=== PATIENT | male | born 1955 | race Two or more races ===

== ENCOUNTER 2025-05-30 11:10 | Outpatient (AMB) | payer OTHER, SELFPAY ==
--- NOTE | 2025-05-30 12:07 | A.OFFVIS_ITS ---
Intake Visit Reasons: Hx Patient Monitor Intake Note: patient presents today for: new pt NEUROPSYCHIATRIST urology medications: none blood thinners: none Amusement Equipment Operator Required: Yes Amusement Equipment Operator Services: Amusement Equipment Operator Present Accompanied by: Daughter Allergies No Known Allergies (No Known Allergies*) Allergy (Unverified 05/30/25 12:08) HPI Comments Details: Pietro is a pleasant Sami-speaking male. Recent move from [place]. He is seen for the following urologic conditions - prostate cancer - erectile dysfunction - bulbourethral stricture Rising PSA after treatment for prostate cancer 02/05 1.5 Has seen medical oncology at [facility] Planned PET-CT May be eligible for targeted radiation therapy Given prior recurrence would proceed with GNRH blockade at time of radiation Prostate cancer Diagnosed and treated in [place] Initial diagnosis 2007. Underwent prostatectomy with salvage radiation and Lupron Initial prostatectomy showed pT2c N0 disease. Capsular invasion but no periprosthetic tissue found. Salvage external beam radiation 2009 for rising PSA Imaging - PET 03/08 - postprostatectomy with no residual PSMA positive process within prostatic bed. Two PSMA positive nodes shown. Right common iliac vessel and obturator level. Measures 1.0 cm. PSMA positive skeletal lesion sacrum Persistent PSA following radiation - underwent multiple GnRH administration through 2022 Bulbar urethral stricture 2017 underwent DVIU for stricture following radiation Dilated to 30 Peruvian with 22 Peruvian Pope Required AUS placement Erectile dysfunction Underwent penile prosthetic with revision Review of Systems Const Denies chills and Denies fever(s) Card Reports no additional complaints and Denies syncope Resp Denies cough GI Denies abdominal pain and Denies heartburn Reports as per HPI and Denies change in libido Neuro Denies syncope Psych Denies change in libido Endo Denies change in libido Physical Exam Const General: cooperative, healthy appearing, comfortable and no acute distress Orientation/consciousness: patient oriented x3 HEENT Face and sinus: Yes normal facial exam Mouth: moist mucous membranes Neck Neck: Yes normal visual inspection, Yes full ROM and Yes trachea midline Chest Chest palpation & inspection: normal inspection of the chest Resp Effort & Inspection: normal respiratory effort, able to speak in complete sentences and no respiratory distress GI Inspection: Yes normal to inspection Back/Spine/Pelvis Cervical Spine: normal cervical lordosis Thoracic/Lumbar Spine: thoracic and lumbar spine normal to inspection Skin General skin exam: no rashes or lesions noted Neuro General: patient oriented x3, gait normal, tone normal and moves all extremities Extrem General: Yes normal to inspection and Yes capillary refill normal Assessment & Plan Assessment & Plan (1) Prostate cancer metastatic to intrapelvic lymph node: Code(s): C61 - Malignant neoplasm of prostate; C77.5 - Secondary and unspecified malign ant neoplasm of intrapelvic lymph nodes Category: Medical Plan Restaging for evaluation of targeted external beam radiation Patient Instructions: This note is constructed using voice recognition software. While every effort has been made to ensure accuracy patient information coordinator errors may have been included. Imaging studies, laboratory and physical exam results were discussed and reviewed in detail. No major barriers to patient understanding were identified. An opportunity to ask questions regarding the treatment plan was provided. All questions were answered. The patient expressed understanding and agreement with the above treatment plan. The patient is aware they should contact our office by phone for worsening of their current condition or the appearance of new urologic symptoms. Compliance is encouraged with any medications and followup testing that is ordered. It is a privilege to participate in the urologic care of your patient. If you have any questions or concerns regarding treatment for the above conditions, or other urologic issues, please do not hesitate to contact me. The office telephone contact is [phone]. Sincerely, Dr Paul Moncada MD, [facility] - Urology Compassionate Specialist Care for the Genitourinary System Coding Level of Care Code New Pt Level 4 (45271) Diagnoses Prostate cancer metastatic to intrapelvic lymph node C61; C77.5
--- OUTSIDE RECORDS SUMMARY | 2025-05-30 15:17 | XMS_ITS | Clinical Summary ---
Author Organization [facility] Address [address] [place] [address] Care Team Providers Care Patient Financial Coordinator Name Role Phone Ama Murcia Primary Care Provider + [phone] Source Comments PLEASE NOTE, if this patient is a minor, it may be UNLAWFUL to discuss sensitive information that is contained in these records (such as FAMILY PLANNING, MENTAL HEALTH or SUBSTANCE ABUSE) with the minor patient's parent or other person without the patient's specific authorization.[facility] Allergies No known active allergies Medications diclofenac sodium (VOLTAREN) 1 % gelIndications:Ch ronic bilateral low back pain with left-sided sciatica Apply 2 g topically 2 (two) times daily. 150 g 2 5 Active acetaminophen (TYLENOL) 325 mg tabletIndications :Chronic bilateral low back pain with left-sided sciatica Take 2 Tablets by mouth every 8 (eight) hours. 90 Tablet 2 5 Active losartan (COZAAR) 25 mg tabletIndications :Primary hypertension Take 1 Tablet by mouth once daily. 90 Tablet 5 Active cyclobenzaprine (FLEXERIL) 5 mg tabletIndications :Oligometastatic cancer (CMS & HHS-HCC),Chronic bilateral low back pain with left-sided sciatica Take 1 Tablet by mouth nightly at bedtime as needed for muscle spasms Watch for drowsiness. Avoid use with alcohol or other sedating medication.. 30 Tablet 2 5 Active Active Problems No known active problems Encounters Date Type Department Care Team Description 05/12/2025 Interim Notes [facility] [address] [address] Ama Murcia FNP 04/19/2025 5:20 PM EDT Telemedicine Visit [address] [phone] Kristen Granda FNP-C 04/09/2025 Results Follow-Up [address] [address] Ama Murcia FNP 03/30/2025 9:20 AM EDT Office Visit [address] [address] Ama Murcia FNP 03/10/2025 9:40 AM EDT Office Visit [address] [address] Rogelio Dykes PA-C from Last 3 Months Immunizations Immunization Administration Dates Next Due TDAP 03/30/2025 ZOSTER VACCINE, RECOMBINANT (SHINGRIX) Family History Medical History Relation Name Comments No Known Problems Brother x3 No Known Problems Daughter x1 No Known Problems Father Cancer Mother leukemia Mother No Known Problems Sister x3 Relation Name Status Comments Brother x3 Alive Daughter x1 Alive Father Mother Sister x3 Alive Social History Tobacco Use Types Packs/Day Years Used Date Smoking Tobacco: Never Smokeless Tobacco: Never Tobacco Cessation:Counseling Given: Not Answered Alcohol Use Standard Drinks/Week Comments Never 0 (1 standard drink = 0.6 oz pur e alcohol) Sex and Gender Information Value Date Recorded Sex Assigned at Male 03/10/2025 6:02 AM PDT Legal Sex Male 5:29 AM PDT Gender Identity Male 03/10/2025 6:02 AM PDT Sexual Orientation Straight 03/10/2025 6: 02 AM PDT Last Filed Vital Signs Vital Sign Reading Time Taken Comments Blood Pressure 120/80 03/30/2025 9:33 AM EDT Pulse 66 03/30/2025 9:33 AM EDT Temperature 36.7 C (98.1 F) 03/30/2025 9:33 AM EDT Respiratory Rate 16 03/30/2025 9:33 AM EDT Oxygen Saturation 98% 03/30/2025 9:33 AM EDT Inhaled Oxygen Concentration - - Weight 108 kg (238 lb) 03/30/2025 9:33 AM EDT Height 182.9 cm (6') 03/30/2025 9:33 AM EDT Body Mass Index 32.28 03/30/2025 9:33 AM EDT Plan of Treatment Upcoming Encounters Date Type Department Care Team (Late st Contact Info) Description 07/26/2025 10:00 AM EST Office Visit [facility] [address] [place] [id number] Venu Keesha [address] [place] [address] Health Maintenance Due Date Last Done Comments CT Colonography 2001 Colonoscopy 2001 Colorectal Cancer Screening 2001 FIT/gFOBT 2001 Fecal DNA 2001 Flexible Sigmoidoscopy 2001 [id number] ( season) 2025 Imm-Influenza (#1) 2025 Imm-Zoster, Recombinant (2 o f 2) 05/25/2025 03/30/2025 Imm-Pneumococcal 50+ (1 of 1 - PCV) 07/01/2025 Postponed from 12/05 (Patient postponement) Falls Prevention 03/30/2026 03/30/2025 Medicare Annual Wellness Visit 03/30/2026 03/30/2025 Tobacco Screening 05/12/2026 05/12/2025 Diabetes Screening 03/30/2028 03/30/2025, 03/10/2025 Lipid Screening 03/30/2028 03/30/2025 Imm-DTaP/Tdap/Td (2 - Td or Tdap) 03/30/2035 03/30/2025 Alcohol and Drug Screen Completed 03/30/2025 Depression Annual Screen Completed 03/30/2025 Hepatitis C Screening Completed 03/30/2025 Procedures Procedure Name Priority Date/Time Associated Diagnosis Comments REFERRAL TO ONCOLOGY Urgent 05/23/2025 3:00 AM EDT Oligometastatic cancer ([facility] & HHS-HCC) REFERRAL TO OPHTHALMOLOGY Routine 05/18/2025 3:00 AM EDT Routine general medical examination at a health care facility REFERRAL SCANNED DOCUMENT 04/21/2025 3:00 AM EDT US - PELVIC MALE (NON OBSTETRIC) COMPLETE Urgent 04/07/2025 3:00 AM EDT Right lower quadrant pain RFLX - REFLEXIVE URINE CULTURE Routine 03/30/2025 10:25 AM EDT Routine general medical examination at a [facility] facility URINALYSIS, COMPLETE W/REFLEX TO CULTURE Routine 03/30/2025 10:25 AM EDT Routine general medical examination at a [facility] care facility HEPATITIS C AB W/RFLX HCV RNA, QT, RT PCR Routine 03/30/2025 10:25 AM EDT Routine general medical examination at a [facility] facility TSH W/RFLX FREE T4 Routine 03/30/2025 10 :25 AM EDT Routine general medical examination at a [facility] facility HEMOGLOBIN GLYCOSYLATED A1C Routine 03/30/2025 10:25 AM EDT Routine general medical examination at a [facility] care facility LIPID PANEL Routine 03/30/2025 10:25 AM EDT Routine general medical examination at a [facility] care facility PROSTATE SPECIFIC ANTIGEN, FREE AND TOTAL Routine 03/10/2025 9:35 AM EDT Oligometastatic cancer ([facility] & HHS-HCC) BLOOD COUNT COMPLETE AUTOMATED Routine 03/10/2025 9:35 AM EDT Oligometastatic cancer ([facility]) COMPREHENSIVE METABOLIC PANEL Routine 03/10/2025 9:35 AM EDT Oligometastatic cancer ([facility]) LAB SCANNED DOCUMENT 03/10/2025 3:00 AM EDT IMAGING SCANNED DOCUMENT 02/28/2025 3:00 AM EDT REFERRAL FOR PET SCAN Routine 02/28/2025 3:00 AM EDT Oligometastatic cancer ([facility]) from Last 3 Months Results * REFERRAL TO ONCOLOGY (05/23/2025 3:00 AM EDT) 05/23/2025 3:00 AM EDT Rogelio Donis PA-C REFERRAL Final Result * REFERRAL TO OPTHALMOLOGY (05/18/2025 3:00 AM EDT) 05/18/2025 3:00 AM EDT Ama Murcia [facility] REFERRAL Final Result * REFERRAL SCANNED DOCUMENT (04/21/2025 3:00 AM EDT) 04/21/2025 3:00 AM EDT [facility] Provider Default SCAN REFERRAL Final Resu lt * US - PELVIC MALE (NON OBSTETRIC) COMPLETE (04/07/2025 3:00 AM EDT) 04/07/2025 3:00 AM EDT Ama AlTwin [facility] IMG ULTRASOUND Final Result * HEPATITIS C AB W/RFLX HCV RNA, QT, RT PCR Routine (03/30/2025 10:25 AM EDT) HEPATITIS C ANTIBODY NON-REACT HANSEL NON-REACT HANESL [facility] Comment: HCV antibody was non-reactive. There is no laboratory evidence of HCV infection. In most cases, no further action is required. However, if recent HCV exposure is suspected, a test for HCV RNA (test code 56492) is suggested. For additional information please refer to http://education.[employer]/faq/UUN89w6 (This link is being provided for informational/ educational purposes only.) Blood Blood / Unknown 03/30/2025 1 0:25 AM EDT 03/30/2025 10:26 AM EDT Narrative [facility] - 03/31/2025 5:00 PM EDT FASTING:NO Amapadilla Murcia [facility] LAB - BLOOD DRAW Final Resul t Performing Organization Address City/[facility]/ZIP Co de Phone Number [facility] [address] [address], [facility] [address] [address] * TSH W/RFLX FREE T4 Routine (03/30/2025 10:25 AM EDT) TSH W/REFLEX TO FT4 1.15 0.40 - 4.50 mIU/L [facility] Blood Blood / Unknown 03/30/2025 1 0:25 AM EDT 03/30/2025 10:26 AM EDT Narrative [facility] - 03/31/2025 5:00 PM EDT FASTING:NO Ama Murcia [facility] - BLOOD DRAW Edited Resu lt - Final Performing Organization Address City/[facility]/ZIP Co de Phone Number [facility] [address] [address], [facility] [address] [address] * URINALYSIS, COMPLETE W/REFLEX TO CULTURE Urine Routine (03/30/2025 10:25 AM EDT) COLOR YELLOW YELLOW [facility] APPEARANCE CLEAR CLEAR [facility] SPECIFIC GRAVITY 1.019 1.001 - 1.035 [facility] URINE PH 7.0 5.0 - 8.0 [facility] GLUCOSE NEGATIVE NEGATIVE [facility] BILIRUBIN NEGATIVE NEGATIVE [facility] KETONES NEGATIVE NEGATIVE [facility] OCCULT BLOOD NEGATIVE NEGATIVE [facility] URINE PROTEIN NEGATIVE NEGATIVE [facility] NITRITE NEGATIVE NEGATIVE [facility] LEUKOCYTE ESTERASE NEGATIVE NEGATIVE [facility] URINE LEUKOCYTES NONE SEEN < OR = 5 [facility] RBC NONE SEEN < OR = 2 [facility] SQUAMOUS EPITHELIAL CELLS 0-5 < OR = 5 /HPF [facility] BACTERIA NONE SEEN NONE SEEN [facility] HYALINE CAST NONE SEEN NONE SEEN [facility] SEE NOTE See Below [facility] Comment: This urine was analyzed for the presence of WBC, RBC, bacteria, casts, and other formed elements. Only those elements seen were reported. Urine Urine specimen / Unknown 03/30/2025 10:25 AM EDT 03/30/2025 10:26 AM EDT Narrative [employer] [facility] - 03/31/2025 5:00 PM EDT FASTING:NO Ama AlTwin [facility] URINE AMBULATORY Edited Result - Final Performing Organization Address [facility] Co de Phone Number [facility] [address] [address], [facility] [address] [address] * RFLX - REFLEXIVE URINE CULTURE Routine (03/30/2025 10:25 AM EDT) REFLEXIVE URINE CULTURE See Below [facility] Comment:NO CULTURE INDICATED 03/30/2025 10:2 5 AM EDT 03/30/2025 10:26 AM EDT Narrative [employer] [facility] - 03/31/2025 5:00 PM EDT FASTING:NO Ama Diarian [facility] - MICROBIOLOGY AMBULATOR Y Edited Result - Final Performing Organization Address [facility] de Phone Number [facility] [address] [address], [facility] [address] [address] * HEMOGLOBIN GLYCOSYLATED A1C Routine (03/30/2025 10:25 AM EDT) HEMOGLOBIN A1C 5.1 <5.7 % [employer] [facility] Comment: For the purpose of screening for the presence of diabetes: <5.7% Consistent with the absence of diabetes 5.7-6.4% Consistent with increased risk for diabetes (prediabetes) > or =6.5% Consistent with diabetes This assay result is consistent with a decreased risk of diabetes. Currently, no consensus exists regarding use of hemoglobin A1c for diagnosis of diabetes in children. According to [place] Diabetes Association (ADA) guidelines, hemoglobin A1c <7.0% represents optimal control in non- diabetic patients. Different metrics may apply to specific patient populations. Standards of Medical Care in Diabetes(ADA). Blood Blood / Unknown 03/30/2025 1 0:25 AM EDT 03/30/2025 10:26 AM EDT Narrative [facility] - 03/31/2025 5:00 PM EDT FASTING:NO Ama Twin [facility] - BLOOD DRAW Edited Resu lt - Final [facility] [address] [place] [phone], [facility] [address] [place] [phone] * (ABNORMAL) LIPID PANEL Routine (03/30/2025 10:25 AM EDT) CHOLESTEROL, TOTAL 133 <200 mg/dL [facility] HDL CHOLESTEROL 35(L) > OR = 40 mg/dL [facility] TRIGLYCERIDES 187(H) <150 mg/dL [facility] LDL-CHOLESTEROL 72 99 mg/dL (calc) [facility] Comment: Reference range: <100 Desirable range <100 mg/dL for primary prevention; <70 mg/dL for patients with CHD or diabetic patients with > or = 2 CHD risk factors. LDL-C is now calculated using the Palmer-Sahu calculation, which is a validated novel method providing better accuracy than the Friedewald equation in the estimation of LDL-C. Palmer SS et al. EVERARDO. 2013;310(19): 2948-5537 (http://education.[employer]/faq/KBE327) CHOL/HDLC RATIO 3.8 <5.0 (calc) [facility] NON-HDL CHOLESTEROL 98 <130 mg/dL (calc) [facility] Comment: For patients with diabetes plus 1 major ASCVD risk factor, treating to a non-HDL-C goal of <100 mg/dL (LDL-C of <70 mg/dL) is considered a therapeutic option. Blood Blood / Unknown 03/30/2025 1 0:25 AM EDT 03/30/2025 10:26 AM EDT Narrative [facility] - 03/31/2025 5:00 PM EDT FASTING:NO Ama Murcia [facility] - BLOOD DRAW Final Resul t [facility] [address] [address], [facility] [address] [place] [address] * (ABNORMAL) PROSTATE SPECIFIC ANTIGEN, FREE AND TOTAL Routine (03/10/2025 9:35 AM EDT) TOTAL PSA 1.4 < OR = 4.0 ng/mL [facility] FREE PSA 0.2 ng/mL [facility] [employer] % FREE PSA 14(L) >25 % (calc) [facility] Comment: PSA(ng/mL) Free PSA(%) Estimated(x) Probability of Cancer(as%) 0-2.5 (*) Approx. 1 2.6-4.0(1) 0-27(2) 24(3) 4.1-10(4) 0-10 56 11-15 28 16-20 20 21-25 16 >or =26 8 >10(+) N/A >50 References:(1)Catalona et al.:Urology 60: 469-474 (2001) (2)Catalona et al.:J.Urol 168: 922-925 (2001) Free PSA(%) Sensitivity(%) Specificity(%) < or = 25 85 19 < or = 30 93 9 (3)Catalona et al.:EVERARDO 277: 7493-9113 (1996) (4)Catalona et al.:EVERARDO 279: 7225-0538 (1997) (x)These estimates vary with age, ethnicity, family history and JESUS results. (*)The diagnostic usefulness of % Free PSA has not been established in patients with total PSA below 2.6 ng/mL (+)In men with PSA above 10 ng/mL, prostate cancer risk is determined by total PSA alone. The Total PSA value from this assay system is standardized against the equimolar PSA standard. The test result will be approximately 20% higher when compared to the WHO-standardized Total PSA (Siemens assay). Comparison of serial PSA results should be interpreted with this fact in mind. PSA was performed using the [employer] Immunoassay method. Values obtained from different assay methods cannot be used interchangeably. PSA levels, regardless of value, should not be interpreted as absolute evidence of the presence or absence of disease. Blood Blood / Unknown 03/10/2025 9 :35 AM EDT 03/10/2025 9:36 AM EDT Rogelio [facility] - BLOOD DRAW Final Result [facility] [address] [place] [phone], [facility] [address] [place] [phone] * BLOOD COUNT COMPLETE AUTOMATED Routine (03/10/2025 9:35 AM EDT) Pathologist [facility] WHITE BLOOD CELL COUNT 3.8 3.8 - 10.8 Thousand/ uL [facility] RED BLOOD CELL COUNT 4.79 4.20 - 5.80 Million/u L [facility] HEMOGLOBIN 15.0 13.2 - 17.1 g/dL [facility] HEMATOCRIT 44.6 38.5 - 50.0 % [facility] MCV 93.1 80.0 - 100.0 fL [facility] MCH 31.3 27.0 - 33.0 pg [facility] MCHC 33.6 32.0 - 36.0 g/dL [facility] Comment: For adults, a slight decrease in the calculated MCHC value (in the range of 30 to 32 g/dL) is most likely not clinically significant; however, it should be interpreted with caution in correlation with other red cell parameters and the patient's clinical condition. RDW 13.8 11.0 - 15.0 % [facility] PLATELET COUNT 142 140 - 400 Thousand/ uL [facility] MPV 10.2 7.5 - 12.5 fL [facility] Blood Blood / Unknown 03/10/2025 9 :35 AM EDT 03/10/2025 9:36 AM EDT Rogelio [facility] - BLOOD DRAW Edited Resul t - Final Performing Organization Address City/[facility]/ZIP Co de Phone Number [facility] [address] [address], [facility] [address] [phone] * COMPREHENSIVE METABOLIC PANEL Routine (03/10/2025 9:35 AM EDT) GLUCOSE 95 65 - 99 mg/dL [facility] Comment: Fasting reference interval UREA NITROGEN (BUN) 20 7 - 25 mg/dL [facility] CREATININE (blood) 1.02 0.70 - 1.35 mg/dL [facility] EGFR 80 > OR = 60 mL/min/1. 73m2 [facility] BUN/CREATININE RATIO SEE NOTE: [facility] Comment: Not Reported: BUN and Creatinine are within reference range. SODIUM 137 135 - 146 mmol/L [facility] POTASSIUM 4.4 3.5 - 5.3 mmol/L [facility] CHLORIDE 104 98 - 110 mmol/L [facility] CARBON DIOXIDE 27 20 - 32 mmol/L [facility] CALCIUM 9.6 8.6 - 10.3 mg/dL [facility] PROTEIN, TOTAL 7.2 6.1 - 8.1 g/dL [facility] ALBUMIN 4.7 3.6 - 5.1 g/dL [facility] GLOBULIN 2.5 1.9 - 3.7 g/dL (calc) [facility] ALBUMIN/GLOBULI N RATIO 1.9 1.0 - 2.5 (calc) [facility] BILIRUBIN, TOTAL 0.5 0.2 - 1.2 mg/dL [facility] ALKALINE PHOSPHATASE 59 35 - 144 U/L [facility] AST 14 10 - 35 U/L [facility] ALT 12 9 - 46 U/L [facility] Blood Blood / Unknown 03/10/2025 9 :35 AM EDT 03/10/2025 9:36 AM EDT us Rogelio [facility] LAB - BLOOD DRAW Edited Resul t - Final Performing Organization Address City/[facility]/ZIP Co de Phone Number [facility] [address] [address], [facility] [address] [address] * LAB SCANNED DOCUMENT (03/10/2025 3:00 AM EDT) 03/10/2025 3:00 AM EDT Ama Twin [facility] Final Result * REFERRAL FOR PET SCAN (02/28/2025 3:00 AM EDT) 02/28/2025 3:00 AM EDT Rogelio Dykes PA-C IMG RFL PET Final Result * IMAGING SCANNED DOCUMENT (02/28/2025 3:00 AM EDT) 02/28/2025 3:00 AM EDT Ama Twin [facility] SCAN IMAGING Final Result from Last 3 Months Insurance [place] Member Subscriber Plan / Payer (Ef fective 2025-Present) Name:MinorCastroPietro Relation to Subscriber:Self Name:MinorCastroPietro Payer ID:[id number] Group ID:Not on file Type:Medicaid Address: [address] [place] [id number] [place] [address] Care Teams Patient Financial Coordinator Relationship Specialty Start Date End Date Ama Murcia FNP [address] [place] [address] PCP - General Family Medicine, [facility]ER 03/08/25
--- OUTSIDE RECORDS SUMMARY | 2025-05-30 15:17 | XMS_ITS | Clinical Summary ---
Author Organization [address] [place] [address] Address [address] [place] [address] Phone Care Team Providers Care Livestock Producer Name Role Phone Child, Rogelio HDEZ Primary Care Provider [phone] Allergies No known active allergies Medications acetaminophen (TYLENOL) 325 mg tablet Take 2 tablets (650 mg total) by mouth every 8 (eight) hours if needed for mild pain. Active losartan (COZAAR) 25 mg tablet Take 1 tablet (25 mg total) by mouth 1 (one) time each day. Active diclofenac (VOLTAREN) 1 % topical gel Apply 2 g topically 2 (two) times a day. Active cyclobenzaprine (FLEXERIL) 5 mg tablet Take 1 tablet (5 mg total) by mouth. Active Encounters Date Type Department Care Team Description 05/23/2025 2:00 PM EDT Office Visit [facility] Hematology Oncology [address] [place] [address] Star Moreno MD Prostate cancer (CMS/HCC V24, CMS/HCC V28) 04/03/2025 Telephone Gastroenterology [facility] [address] [address] Maria Calabrese MD from Last 3 Months Social History Tobacco Use Types Packs/Day Years Used Date Smoking Tobacco: Never Assessed Sex and Gender Information Value Date Recorded Sex Assigned at Male 05/08/2025 4:55 PM EDT Legal Sex Male 9:29 AM EDT Gender Identity Male 05/08/2025 4:55 PM EDT Sexual Orientation Straight 05/08/2025 4: 55 PM EDT Last Filed Vital Signs Vital Sign Reading Time Taken Comments Blood Pressure 150/89 05/23/2025 2:06 PM EDT Pulse 76 05/23/2025 2:06 PM EDT Temperature 36.6 C (97.8 F) 05/23/2025 2:06 PM EDT Respiratory Rate - - Oxygen Saturation 100% 05/23/2025 2:06 PM EDT Inhaled Oxygen Concentration - - Weight 105 kg (231 lb) 05/23/2025 2:06 PM EDT Height 185.4 cm (6' 1 ) 05/23/2025 2:06 PM EDT Body Mass Index 30.48 05/23/2025 2:06 PM EDT Plan of Treatment Upcoming Encounters Date Type Department Care Team (Late st Contact Info) Description 06/21/2025 8:00 AM EDT Appointment [facility] Endoscopy [address] [place] [address] Maria Calabrese MD [address] [address] 06/23/2025 10:45 AM EDT Office Visit [facility] Hematology Oncology [address] [place] [phone] Star Moreno MD [address] [place] [address] Health Maintenance Due Date Last Done Comments COVID-19 Vaccine (#1) 1960 Pneumococcal Vaccine: 50+ Years (1 of 2 - PCV) 12/06/1975 Depression Screening 09/14/2024 Colorectal Cancer Screening: Colonoscopy 04/03/2025 Falls Risk Assessment 04/03/2025 Social Influencers of Health Screening 04/03/2025 Influenza Vaccine (#1) 2025 Zoster Vaccines (2 of 2) 05/25/2025 03/30/2025 Hypertension/CHF/CAD Annual BMP Blood Test 05/23/2026 05/23/2025, 03/10/2025 Cholesterol Screening (Lipid Panel) 03/30/2030 03/30/2025, 03/30/2025 RSV Immunization Adult Patients (1 - 1-dose 75+ series) 12/06/2031 DTaP,Tdap,and Td Vaccines (2 - Td or Tdap) 03/30/2035 03/30/2025 Hepatitis C Screening Completed 03/30/2025 HIB Vaccines Aged Out No longer eligi ble based on patient's age to complete this topic HPV Vaccines Aged Out No longer eligi ble based on patient's age to complete this topic Hepatitis A Vaccines Aged Out No long er eligible based on patient's age to complete this topic Hepatitis B Vaccines Aged Out No long er eligible based on patient's age to complete this topic IPV Vaccines Aged Out No longer eligi ble based on patient's age to complete this topic MMR Vaccines Aged Out No longer eligi ble based on patient's age to complete this topic Meningococcal ACWY Vaccine Aged Out N o longer eligible based on patient's age to complete this topic Meningococcal B Vaccine Aged Out No l onger eligible based on patient's age to complete this topic RSV Immunization Patients Under 20 months Aged Out No longer eligible b ased on patient's age to complete this topic Varicella Vaccines Aged Out No longer eligible based on patient's age to complete this topic Procedures Procedure Name Priority Date/Time Associated Diagnosis Comments CBC WITH AUTO DIFFERENTIAL Routine 05/23/2025 2:41 PM EDT Prostate cancer ([facility]/HCC V24, CMS/[facility] V28) CBC AND DIFFERENTIAL Routine 05/23/2025 2:41 PM EDT Prostate cancer ([facility]/HCC V24, CMS/HCC V28) COMPREHENSIVE METABOLIC PANEL Routine 05/23/2025 2:41 PM EDT Prostate cancer (CMS/HCC V24, CMS/HCC V28) PROSTATE SPECIFIC ANTIGEN DIAGNOSTIC Routine 05/23/2025 2:41 PM EDT Prostate cancer (CMS/HCC V24, CMS/HCC V28) from Last 3 Months Results * Prostate specific antigen diagnostic (05/23/2025 2:41 PM EDT) PSA 1.19 0.00 - 4.00 ng/mL LAB CHEMISTRY METHOD 05/23/2025 7:34 PM EDT [facility] Blood Venous blood specimen / Unknown Venipuncture / Unknown 05/23/2025 2:41 PM EDT 05/23/2025 4:46 PM EDT Narrative [facility] - 05/23/2025 7:34 PM EDT The Siemens Advia Centaur Chemiluminescent Immunoassay is used. Results obtained with different assay methods or kits cannot be used interchangeably. Results cannot be interpreted as absolute evidence of the presence or absence of malignant disease. us Star Moreno MD LAB BLOOD ORDERABLES Final R esult [facility] [address] [place] [address], [place] [phone] * (ABNORMAL) CBC auto differential (05/23/2025 2:41 PM EDT) WBC 4.6(L) 4.8 - 10.8 K/mcL LAB HEMETOLOGY METHOD 05/23/2025 5:15 PM EDT [facility] RBC 4.70 4.50 - 5.50 M/mcL LAB HEMETOLOGY METHOD 05/23/2025 5:15 PM EDT [facility] Hemoglobin 14.1 13.5 - 17.5 g/dL LAB HEMETOLOGY METHOD 05/23/2025 5:15 PM EDT [facility] Hematocrit 39.0(L) 42.0 - 54.0 % LAB HEMETOLOGY METHOD 05/23/2025 5:15 PM EDT [facility] MCV 83.5 79.0 - 98.0 FL LAB HEMETOLOGY METHOD 05/23/2025 5:15 PM EDT [facility] MCH 30.2 27.0 - 32.0 pcg LAB HEMETOLOGY METHOD 05/23/2025 5:15 PM EDT [facility] MCHC 36.2 32.0 - 37.0 g/dL LAB HEMETOLOGY METHOD 05/23/2025 5:15 PM EDT [facility] RDW 13.7 11.0 - 15.0 % LAB HEMETOLOGY METHOD 05/23/2025 5:15 PM EDT [facility] Platelets 128(L) 130 - 400 K/mcL LAB HEMETOLOGY METHOD 05/23/2025 5:15 PM EDT [facility] MPV 11.1(H) 7.0 - 11.0 FL LAB HEMETOLOGY METHOD 05/23/2025 5:15 PM EDT [facility] NRBC 0.0 <1.0 % LAB [facility]OLOGY [facility] NRBC Absolute 0.00 <0.10 K/mcL LAB HEMETOLOGY METHOD 05/23[facility]2025 [facility] Neutrophils Relative 63.8 % LAB HEMETOLOGY METHOD 05/23[facility]2025 [facility] Lymphocytes Relative 23.9 % LAB HEMETOLOGY METHOD 05/23[facility]2025 [facility] Monocytes Relative 9.1 % LAB HEMETOLOGY METHOD 05/23[facility]2025 [facility] Eosinophils Relative 2.6 % LAB HEMETOLOGY METHOD 05/23/2025 5:15 PM EDT [facility] Basophils Relative 0.4 % LAB HEMETOLOGY METHOD 05/23/2025 5:15 PM EDT [facility] Immature Granulocytes Relative 0.2 % LAB HEMETOLOGY METHOD 05/23[facility]2025 [facility] Neutrophils Absolute 2.94 1.50 - 7.00 K/mcL LAB HEMETOLOGY METHOD 05/23/2025 5:15 PM EDT [facility] Lymphocytes Absolute 1.10 1.00 - 5.00 K/mcL LAB HEMETOLOGY METHOD 05/23/2025 5:15 PM EDT [facility] Monocytes Absolute 0.42 0.20 - 1.00 K/[facility] HEMETOLOGY METHOD 05/23/2025 5:15 PM EDT [facility] Eosinophils Absolute 0.12 0.00 - 0.50 K/[facility] HEMETOLOGY METHOD 05/23/2025 5:15 PM EDT [facility] Basophils Absolute 0.02 0.00 - 0.20 K/[facility] LAB HEMETOLOGY METHOD 05/23/2025 5:15 PM EDT [facility] Immature Granulocytes Absolute 0.01 0.00 - 0.03 K/[facility] HEMETOLOGY METHOD 05/23/2025 5:15 PM EDT [facility] Blood Venous blood specimen / Unknown Venipuncture / Unknown 05/23/2025 2:41 PM EDT 05/23/2025 4:46 PM EDT us Star Moreno MD LAB BLOOD ORDERABLES Final R esult [facility] [address] [place] [address], * Comprehensive metabolic panel (05/23/2025 2:41 PM EDT) Sodium 138 133 - 145 mmol/L LAB CHEMISTRY METHOD 05/23/2025 5:56 PM EDT [facility] Potassium 4.1 3.5 - 5.5 mmol/L LAB CHEMISTRY METHOD 05/23/2025 5:56 PM EDT [facility] Chloride 107 96 - 110 mmol/L LAB CHEMISTRY METHOD 05/23/2025 5:56 PM EDT [facility] CO2 26 21 - 32 mmol/L LAB CHEMISTRY METHOD 05/23/2025 5:[address] [facility] Anion Gap 5 3 - 11 LAB CHEMISTRY METHOD 05/23/2025 5:[address] [facility] Glucose 91 70 - 100 mg/dL LAB CHEMISTRY METHOD 05/23/2025 5:[address] [facility] BUN 18 5 - 25 mg/dL LAB CHEMISTRY METHOD 05/23/2025 5:[address] [facility] Creatinine 0.92 0.70 - 1.30 mg/dL LAB CHEMISTRY METHOD 05/23/2025 5:[address] [facility] eGFR 91 >=60 mL/min/1. 73m2 LAB CHEMISTRY METHOD 05/23/2025 5:[address] [facility] Comment:Calculation based on the Chronic Kidney Disease Epidemiology Collaboration (CKD-EPI) equation refit without adjustment for race. BUN/Creatinine Ratio 19.6 LAB CHEMISTRY METHOD 05/23/2025 5:[address] [facility] Calcium 9.1 8.5 - 10.5 mg/dL LAB CHEMISTRY METHOD 05/23/2025 5:[address] [facility] AST (SGOT) 17 10 - 42 unit/L LAB CHEMISTRY METHOD 05/23/2025 5:[address] [facility] ALT (SGPT) 17 10 - 60 unit/L LAB CHEMISTRY METHOD 05/23/2025 5:[address] [facility] Alkaline Phosphatase 71 42 - 121 unit/L LAB CHEMISTRY METHOD 05/23/2025 5:[address] [facility] Total Protein 7.1 6.0 - 8.0 g/dL LAB CHEMISTRY METHOD 05/23/2025 5:[address] [facility] Albumin 4.2 3.2 - 5.0 g/dL LAB CHEMISTRY METHOD 05/23/2025 5:[address] [facility] Total Bilirubin 0.5 0.0 - 1.4 mg/dL LAB CHEMISTRY METHOD 05/23/2025 5:56 PM EDT [facility]) [facility] Blood Venous blood specimen / Unknown Venipuncture / Unknown 05/23/2025 2:41 PM EDT 05/23/2025 4:46 PM EDT us Star Moreno MD LAB BLOOD ORDERABLES Final R esult [facility]) [facility] [address] [place] [address], from Last 3 Months Insurance [facility] Member Subscriber Plan / Payer (Ef fective 2025-Present) Name:Pietro Perez Relation to Subscriber:Self Name:Pietro Castro Payer ID:[id number] Group ID:[id number] Type:Not on file Address: [place] [address] [address] [id number] Care Teams Livestock Producer Relationship Specialty Start Date End Date Child, KETTY Mercado [address] [place] [address] PCP - General Physician Design Coordinator 05/08/25
== END 2025-05-30 12:35 | disposition home or self-care (01) ==
LOC: HO.HUSH 11:10
PROVIDERS: Visit Provider Urology
DX: C61 Malignant neoplasm of prostate (principal); C77.5 Secondary and unspecified malignant neoplasm of intrapelvic lymph nodes
CPT/HCPCS: 99204

== ENCOUNTER → 2025-05-30 11:10 | Outpatient (BNVA) | payer OTHER, SELFPAY | PROVIDERS: Visit Provider Urology | DX: C61 Malignant neoplasm of prostate (principal); C77.5 Secondary and unspecified malignant neoplasm of intrapelvic lymph nodes | CPT/HCPCS: 99202 ==